=== PATIENT | female | born 1985 | race Caucasian/White ===

== ENCOUNTER 2017-11-30 09:47 | Emergency (ER) | payer SELFPAY ==
[2017-11-30 10:23] LABS: #Basophils 0.1 thou/uL (0.0-0.2); #Eosinphils 0.2 thou/uL (0.0-0.7); #Lymphocytes 1.7 thou/uL (1.20-3.40); #Monocytes 0.6 thou/uL (0.11-0.59); #Neutrophils 5.3 thou/uL (1.40-6.50); %Basophils 0.7 % (0.0-1.0); %Lymphocytes 21.8 % (21.0-51.0); %Monocytes 7.3 % (0.0-10.0); %Neutrophils 68.2 % (42.0-75.0); Hemoglobin 14.5 g/dL (12.0-16.0); Mean Corpuscular HGB CONC 35.1 g/dL (32.0-36.0); Mean Corpuscular Hemoglobin 32.7 pg (27.0-31.0); Mean Corpuscular Volume 93.3 fL (78.0-98.0); Mean Platelet Volume 7.2 fL (7.4-10.4); Platelet Count 258 thou/uL (130-400); RBC Distribution Width 11.3 % (11.5-14.5); Red Blood Cell (RBC) Count 4.44 mill/uL (4.20-5.40); White Blood Cell (WBC) Count 7.7 thou/uL (4.8-10.8)
[2017-11-30 10:23] LABS: Bilirubin Small (Negative); Blood, Urine Large (Negative); Clarity CLOUDY (Clear); Glucose, Urine (Dipstick) Negative (Negative); Leukocyte Small (Negative); Nitrite Negative (Negative); Protein, Urine (Dipstick) 30 mg/dL (Neg-Trace); Specific Gravity, Urine 1.025 (1.002-1.036)
[2017-11-30 10:24] LABS: Pregnancy Test - Urine (BHCG) Negative (Negative); Pregu Control Background? CLEAR/WHITE (CLR/WHITE); Pregu Control Bar Appear? YES (CONTROL BAR); Specific Gravity 1.025 (1.002-1.036)
[2017-11-30 10:28] LABS: Bacteria/HPF None Seen HPF (None Seen); RBC/HPF GREATER THAN 50-TNTC HPF (0-3); Yeast-AUWi Flag 14.5 (0-25.0)
[2017-11-30 10:29] LABS: Pathc Cast-AUWi Flag 6.83 (0-2.49)
[2017-11-30 10:32] LABS: Amphetamine Not Detected (NotDetected); Barbiturates Screen Not Detected (NotDetected); Benzodiazepine Screen Detected (NotDetected); Cocaine Metabolite Screen Not Detected (NotDetected); Medtox Reader # READER 1; Methadone Not Detected (NotDetected); Methamphetamine Not Detected (NotDetected); Opiate Screen Not Detected (NotDetected); Oxycodone Screen Not Detected (NotDetected); Phencyclidine (PCP) Not Detected (NotDetected); THC/Cannabinoid Screen Detected (NotDetected); Tricyclic Screen Not Detected (NotDetected)
[2017-11-30 10:33] LABS: Medtox Control Line Valid? VALID (VALID)
[2017-11-30 10:37] LABS: Hyaline Casts/LPF 0-3 HYALINE CAST LPF (0-3 Hyaline); Other Casts/LPF None Seen LPF (0-3 Hyaline); Renal Epithelial 0-3 HPF (0-3)
[2017-11-30 10:38] LABS: Oval Fat Bodies/HPF Rare HPF (None Seen)
[2017-11-30 10:46] LABS: ALT (SGPT) 10 U/L (8-55); AST (SGOT) 15 U/L (5-34); Acetaminophen Less than 6.0 mcg/mL (10.0-30.0); Albumin 4.7 g/dL (3.5-5.0); Alcohol Less than 10 mg/dL (Less than 10); Alkaline Phosphatase 68 U/L (40-150); Anion Gap 14 mmol/L (10-20); BUN (Urea Nitrogen) 8 mg/dL (7.0-18.7); Bilirubin, Total 0.7 mg/dL (0.2-1.2); Calc. Creatinine Clearance 0 mL/min (70-130); Calcium 9.6 mg/dL (7.8-10.44); Carbon Dioxide 24 mmol/L (22-29); Chloride 105 mmol/L (98-107); Estimated GFR-MDRD 74; Globulin 3.4 g/dL (2.4-3.5); Glucose 113 mg/dL (70-105); Potassium 3.6 mmol/L (3.5-5.1); Protein, Total 8.1 g/dL (6.0-8.3); Salicylate Less than 8.0 mg/dL (15.0-30.0); Sodium 139 mmol/L (136-145)
[2017-11-30] MEDS ORDERED: Sulfameth/Trimethoprim DS 800-160mg TAB ONE ×2 (11:17→19:09)
[2017-11-30] MEDS ORDERED: Acetaminophen 500 MG TAB ONE (11:47)
[2017-11-30] MEDS ORDERED: Phenazopyridine HCl 97.5 MG TABLET PO SCH (15:45)
[2017-11-30] MEDS ORDERED: Ondansetron ODT 4 MG TAB ONE (16:50)
[2017-11-30] MEDS ORDERED: Famotidine 20 MG TAB ONE (19:47)
[2017-11-30] MEDS ORDERED: Lidocaine Viscous Sol 2% 15 ml UD Cup ONE (19:47)
[2017-11-30] MEDS ORDERED: Mag-Al 1200 mg/1200 mg/30 ML UDCUP ONE (19:47)
== END 2017-11-30 20:29 ==
LOC: ERS 09:47
DX: F32.9 Major depressive disorder, single episode, unspecified (principal); T42.4X2A Poisoning by benzodiazepines, intentional self-harm, initial encounter; T48.1X2A Poisoning by skeletal muscle relaxants [neuromuscular blocking agents], intentional self-harm, initial encounter; R10.9 Unspecified abdominal pain; N39.0 Urinary tract infection, site not specified; I10 Essential (primary) hypertension; F41.9 Anxiety disorder, unspecified; F17.210 Nicotine dependence, cigarettes, uncomplicated
CPT/HCPCS: 36415; 80053; 80306; 80307; 81003; 81015; 81025; 85025; 93005; Q0162